=== PATIENT | male | born 1945 | race Caucasian/White ===

== ENCOUNTER 2019-02-07 16:13 | Inpatient (IN) | payer OTHER ==
[2019-02-07] MEDS: IPRATROPIUM (NEB) 0.5 MG/2.5 ML AMP INH (16:21)
[2019-02-07] MEDS: ALBUTEROL 0.5% (NEB) 2.5 MG/0.5 ML AMP INH (16:21)
[2019-02-07 16:30] LABS: ADD MAN DIFF? NO
[2019-02-07] MEDS: SOD CHLORIDE 0.9% 1,000 ML IV (16:32)
[2019-02-07] MEDS: METHYLPREDNISOLONE 125 MG INJ IV (16:32)
[2019-02-07 16:34] LABS: BASOPHIL # 0.1 10^3/ul (0.0-0.1); BASOPHILS % 0.5 % (0.0-2.0); EOSINOPHILS # 0.1 10^3/ul (0.0-0.5); EOSINOPHILS % 1.1 % (0.0-7.0); HEMATOCRIT 34.6 % (42.0-52.0); HEMOGLOBIN 10.4 g/dl (14.0-18.0); LYMPHOCYTES # 1.4 10^3/ul (0.8-2.9); LYMPHOCYTES % 11.2 % (15.0-51.0); MEAN CORPUSCULAR HEMOGLOBIN 24.9 pg (29.0-33.0); MEAN CORPUSCULAR HGB CONC 30.1 g/dl (32.0-37.0); MEAN CORPUSCULAR VOLUME 82.8 fl (82.0-101.0); MEAN PLATELET VOLUME 8.9 fl (7.4-10.4); MONOCYTE # 1.1 10^3/ul (0.3-0.9); MONOCYTES % 8.1 % (0.0-11.0); NEUTROPHIL # 10.1 10^3/ul (1.6-7.5); NEUTROPHILS % 77.9 % (39.0-77.0); PLATELET COUNT 633 10^3/UL (140-415); RED BLOOD COUNT 4.18 10^6/ul (4.70-6.10); RED CELL DISTRIBUTION WIDTH 14.2 % (11.5-14.5)
[2019-02-07 16:34] LABS: WHITE BLOOD COUNT 12.9 10^3/ul (4.8-10.8)
[2019-02-07 16:54] LABS: ALANINE AMINOTRANSFERASE 9 IU/L (13-69); ALBUMIN 3.3 g/dl (3.3-4.9); ALBUMIN/GLOBULIN RATIO 0.91; ALKALINE PHOSPHATASE 79 IU/L (42-121); ANION GAP 11 (5-13); ASPARTATE AMINO TRANSFERASE 21 IU/L (15-46); BILIRUBIN,INDIRECT 0.2 mg/dl (0-1.1); BILIRUBIN,TOTAL 0.2 mg/dl (0.2-1.3); BLOOD UREA NITROGEN 20 mg/dl (7-20); CARBON DIOXIDE 32 mmol/L (21-31); CHLORIDE 99 mmol/L (97-110); CREATININE 0.64 mg/dl (0.61-1.24); GLUCOSE 123 mg/dl (70-220); LIPASE 39 U/L (23-300); POTASSIUM 3.8 mmol/L (3.5-5.1); SODIUM 142 mmol/L (135-144); TOTAL PROTEIN 6.9 g/dl (6.1-8.1)
[2019-02-07 17:05] LABS: TROPONIN-I < 0.012 ng/ml (0.000-0.120)
[2019-02-07] MEDS: CEFTRIAXONE 1 GM/50 ML (PMX) 50 ML IVPB (17:10)
[2019-02-07] MEDS: AZITHROMYCIN 500MG/NS (PMX) 250 ML IVPB (17:52)
[2019-02-07 21:25] LABS: D-DIMER 699.71 ng/ml (<460)
[2019-02-07] MEDS ORDERED: ONDANSETRON 4 MG TAB PO (21:30)
[2019-02-07] MEDS ORDERED: MAGNESIUM HYDROXIDE 30ML CUP PO (21:30)
[2019-02-07] MEDS ORDERED: NACL 0.9% 3 ML SYG IV (21:30)
[2019-02-07] MEDS ORDERED: DOCUSATE SODIUM 100 MG CAP PO (21:30)
[2019-02-07] MEDS: FAMOTIDINE 20 MG TAB PO (21:30)
[2019-02-07] MEDS ORDERED: BISACODYL (EC) 5 MG TAB PO (21:30)
[2019-02-07] MEDS: D5-NS + KCL 20 MEQ 1,000 ML IV (21:30)
[2019-02-07] MEDS: LORAZEPAM 0.5 MG TAB PO (22:26)
[2019-02-07 22:46] LABS: ERYTHROCYTE SEDIMENTATION RATE 55 mm/Hr (0-20)
[2019-02-08] MEDS: D5-NS + KCL 20 MEQ 1,000 ML IV ×2 (01:30→10:50)
[2019-02-08 06:27] LABS: ADD MAN DIFF? NO
[2019-02-08 06:37] LABS: BASOPHILS % 0.2 % (0.0-2.0); HEMATOCRIT 34.5 % (42.0-52.0); HEMOGLOBIN 10.3 g/dl (14.0-18.0); LYMPHOCYTES # 0.7 10^3/ul (0.8-2.9); LYMPHOCYTES % 6.4 % (15.0-51.0); MEAN CORPUSCULAR HEMOGLOBIN 24.9 pg (29.0-33.0); MEAN CORPUSCULAR HGB CONC 29.9 g/dl (32.0-37.0); MEAN CORPUSCULAR VOLUME 83.3 fl (82.0-101.0); MEAN PLATELET VOLUME 9.6 fl (7.4-10.4); MONOCYTE # 0.3 10^3/ul (0.3-0.9); MONOCYTES % 2.5 % (0.0-11.0); NEUTROPHIL # 10.3 10^3/ul (1.6-7.5); NEUTROPHILS % 89.8 % (39.0-77.0); PLATELET COUNT 693 10^3/UL (140-415); RED BLOOD COUNT 4.14 10^6/ul (4.70-6.10); RED CELL DISTRIBUTION WIDTH 14.6 % (11.5-14.5)
[2019-02-08 06:37] LABS: WHITE BLOOD COUNT 11.4 10^3/ul (4.8-10.8)
[2019-02-08 06:48] LABS: HEMOGLOBIN A1C 5.6 % (0-5.9)
[2019-02-08 07:19] LABS: TROPONIN-I < 0.012 ng/ml (0.000-0.120)
[2019-02-08 07:25] LABS: ANION GAP 8 (5-13); BLOOD UREA NITROGEN 24 mg/dl (7-20); CALCIUM 8.8 mg/dl (8.4-10.2); CARBON DIOXIDE 29 mmol/L (21-31); CHLORIDE 105 mmol/L (97-110); CHOL/HDL RATIO 4.7 RATIO; CHOLESTEROL 113 mg/dl (100-200); CREATININE 0.47 mg/dl (0.61-1.24); GLUCOSE 169 mg/dl (70-220); HDL CHOLESTEROL 24 mg/dl (31-75); LDL CHOLESTEROL,CALCULATED 77 mg/dl; MAGNESIUM 1.9 mg/dl (1.7-2.5); POTASSIUM 4.7 mmol/L (3.5-5.1); SODIUM 142 mmol/L (135-144); TRIGLYCERIDES 61 mg/dl (0-149)
[2019-02-08 07:39] LABS: THYROID STIMULATING HORMONE 0.534 MIU/L (0.465-4.680)
[2019-02-08] MEDS: FAMOTIDINE 20 MG TAB PO (08:18)
[2019-02-08] MEDS: FINASTERIDE 5 MG TAB PO (08:18)
[2019-02-08] MEDS: GABAPENTIN 300 MG CAP PO ×2 (08:18→14:01)
[2019-02-08] MEDS: ASPIRIN (EC) 81 MG TAB PO (08:18)
[2019-02-08] MEDS: AMLODIPINE 5 MG TAB PO (08:19)
[2019-02-08] MEDS: MULTIVITAMINS THERAPEUTIC TAB PO (08:19)
[2019-02-08] MEDS: ENOXAPARIN 40 MG/0.4 ML SYG SC (08:52)
[2019-02-08] MEDS: LORAZEPAM 0.5 MG TAB PO (11:24)
[2019-02-08] MEDS ORDERED: MONTELUKAST 10 MG TAB PO (21:00)
[2019-02-08] MEDS ORDERED: TAMSULOSIN (SR) 0.4 MG CAP PO (21:00)
== END 2019-02-08 16:58 | disposition home or self-care (01) | DRG 312 ==
LOC: E/R 16:13 → TEL 19:08
DX: R55 Syncope and collapse (principal); Z68.1 Body mass index [BMI] 19.9 or less, adult; J44.9 Chronic obstructive pulmonary disease, unspecified; R91.8 Other nonspecific abnormal finding of lung field; I10 Essential (primary) hypertension; F17.210 Nicotine dependence, cigarettes, uncomplicated; R63.4 Abnormal weight loss; F41.9 Anxiety disorder, unspecified; N40.0 Benign prostatic hyperplasia without lower urinary tract symptoms; Z79.82 Long term (current) use of aspirin
CPT/HCPCS: 36415; 71045; 80048; 80053; 80061; 83036; 83690; 83735; 84443; 84484; 85025; 85378; 85651; 87040-91; 87081; 93005; 94644; 96374; 96375; 99285-25